=== PATIENT | male | born 1960 | race Caucasian/White ===

== ENCOUNTER 2024-09-22 11:52 | Inpatient (IN) | payer MEDICARE, MEDICAID ==
[~2024-09-22] VITALS: Ht 167.6 cm; Wt 81.8 kg
[2024-09-22 12:38] LABS: EOSINOPHILS # (AUTO) 0.1 X10'3 (0-0.9); MEAN PLATELET VOLUME 9.1 FL (7.4-10.4); NEUTROPHILS # (AUTO) 3.2 X10'3 (1.8-7.7); RED BLOOD COUNT 3.53 X10'6 (4.70-6.10)
[2024-09-22 12:40] LABS: BASOPHILS % (AUTO) 0.6 % (0-1); EOSINOPHILS % (AUTO) 2.7 % (0-6); HEMATOCRIT 34.1 % (42.0-52.0); LYMPHOCYTES # (AUTO) 1.1 X10'3 (1.1-4.8); LYMPHOCYTES % (AUTO) 21.7 % (21-51); MEAN CORPUSCULAR HGB CONC 35.2 g/dL (33.0-36.5); MEAN CORPUSCULAR VOLUME 96.7 FL (78-98); MONOCYTES # (AUTO) 0.5 X10'3 (0-0.9); MONOCYTES % (AUTO) 10.8 % (2-12); NEUTROPHILS % (AUTO) 64.2 % (42-75); PLATELET COUNT 80 X10'3 (140-440); RED CELL DISTRIBUTION WIDTH 15.3 % (11.5-14.5)
[2024-09-22 12:45] LABS: ALANINE AMINOTRANSFERASE 38 U/L (12-78); ALBUMIN 2.6 G/DL (3.4-5.0); ALBUMIN/GLOBULIN RATIO 0.7 (1.1-1.5); ALKALINE PHOSPHATASE 143 IU/L (46-116); AMYLASE 43 U/L (25-115); ANION GAP 5 (8-16); ASPARTATE AMINO TRANSFERASE 39 U/L (10-37); BILIRUBIN,TOTAL 1.9 MG/DL (0.1-1.0); BLOOD UREA NITROGEN 10 MG/DL (7-18); BUN/CREATININE RATIO 11.4 (10.0-20.0); CALCIUM 8.3 MG/DL (8.5-10.1); CHLORIDE 96 MMOL/L (99-107); CREATININE 0.88 MG/DL (0.60-1.10); GLUCOSE 219 MG/DL (70-104); LIPASE 35 U/L (16-77); POTASSIUM 4.9 MMOL/L (3.5-5.1); SODIUM 129 MMOL/L (135-145); TOTAL CARBON DIOXIDE 27.8 MMOL/L (24-32); TOTAL PROTEIN 6.2 G/DL (6.4-8.2); eCRCL 76 ML/MIN; eGFR 87 ML/MIN
[2024-09-22] MEDS: normal saline 1000ml 1,000 ML IV ONE (15:49)
[2024-09-22 17:00] LABS: BILIRUBIN,URINE NEGATIVE (Neg); CLARITY,URINE CLEAR (Clear); COLOR,URINE YELLOW (Yellow); GLUCOSE, URINE >=1000 mg/dl (Neg); KETONES,URINE NEGATIVE (Neg); LEUKOCYTE ESTERASE ,URINE NEGATIVE (Neg); NITRITES, URINE NEGATIVE (Neg); OCCULT BLOOD,URINE TRACE-INTACT (Neg); PROTEIN,URINE NEGATIVE (Neg)
[2024-09-22 17:05] LABS: UA COLLECTION TYPE NON-SPECIFIED
[2024-09-22 17:08] LABS: BACTERIA,URINE FEW /HPF (Neg); MUCUS STRANDS NONE SEEN /LPF (Neg); SQUAMOUS EPITHELIAL CELL,UR NONE SEEN /LPF (FEW); WBC,URINE 0-4 /HPF (0-4)
--- NOTE | 2024-09-22 17:15 | Physician Documentation ---
History of Present Illness ~ Chief Complaint: Dizziness Stated Complaint: LIVER COMPLICATIONS Time Seen by : 13:40 Mode of Arrival: POV, Ambulatory HPI 64 year old male with history of liver disease and recently moved from an area where he was a [place] patient. Now does not have any PCP to prescribe his home meds. He reports increased abdominal swelling but no abdominal pain, as well as some dizziness. When he gets like this, he knows his ammonia level is high. He has not been taking lactulose. He denies fevers, cough, diarrhea, vomiting. He recently underwent a TIPS procedure. Medication Reconciliation Allergies: Coded Allergies: No Known Allergies (Unverified , 09/22/24) Scheduled Furosemide (Lasix), 1 TAB PO DAILY, (Reported) Lactulose (Lactulose), 20 GM PO TID, (Reported) Lactulose (Lactulose), 20 GM PO QID Spironolactone (Spironolactone), 1 TAB PO DAILY, (Reported) Review of Systems All Other Systems at this time: Reviewed and Negative Physical Exam Vital Signs: RN Vital Signs have been reviewed: Yes, Temperature: 97.6, Source: Temporal, Heart Rate: 60, Respiratory Rate: 15, BP: 119/58, Pulse Oximetry: 98, Weight: 81.820 Oxygen Flow Rate: 0 Physical Exam HEENT: PERRL, moist oral mucosa, EOMI +icteric Pulmonary: No respiratory distress GI: +mild distension, soft, nontender, no guarding, no rebound MSK: no deformity Skin: w/d/i, no rash; jaundice Neuro: alert, nonfocal Psych: normal affect Progress Results/Orders Results/Orders Orders - JANNET CHEN MD Page Hospitalist (09/22/24 ) Chest,Single View (09/22/24 18:01) Completed Orders - JANNET CHEN MD Ammonia (09/22/24 13:42) Normal Saline 1000ml (Sodium Chloride 10 (09/22/24 14:35) Chest,Single View (09/22/24 18:01) Vital Signs 09/22/24 09/22/24 09/22/24 11:59 14:03 14:03 Temp 97.6 Pulse 60 60 Resp 18 15 15 B/P (MAP) 124/67 119/58 (78) Pulse Ox 99 98 O2 Flow Rate 0 Laboratory Tests Test 09/22/24 12:23 09/22/24 14:10 09/22/24 16:46 White Blood Count 5.0 Red Blood Count 3.53 L Hemoglobin 12.0 L Hematocrit 34.1 L Mean Corpuscular Volume 96.7 Mean Corpuscular Hemoglobin 34.0 H Mean Corpuscular Hemoglobin Concent 35.2 Red Cell Distribution Width 15.3 H Platelet Count 80 L Mean Platelet Volume 9.1 Neutrophils (%) (Auto) 64.2 Lymphocytes (%) (Auto) 21.7 Monocytes (%) (Auto) 10.8 Eosinophils (%) (Auto) 2.7 Basophils (%) (Auto) 0.6 Neutrophils # (Auto) 3.2 Lymphocytes # (Auto) 1.1 Monocytes # (Auto) 0.5 Eosinophils # (Auto) 0.1 Basophils # (Auto) 0.0 CBC Comment Sodium Level 129 L Potassium Level 4.9 Chloride Level 96 L Carbon Dioxide Level 27.8 Anion Gap 5 L Blood Urea Nitrogen 10 Creatinine 0.88 Estimated GFR/1.73 m2 87 BUN/Creatinine Ratio 11.4 Glucose Level 219 H Hemoglobin A1c 6.4 H Calcium Level 8.3 L Total Bilirubin 1.9 H Aspartate Amino Transf (AST/SGOT) 39 H Alanine Aminotransferase (ALT/SGPT) 38 Alkaline Phosphatase 143 H Total Protein 6.2 L Albumin 2.6 L Globulin 3.6 Albumin/Globulin Ratio 0.7 L Amylase Level 43 Lipase 35 Chemistry Comments Ammonia 57 H Urine Specimen Description Non-specified Urine Color Yellow Urine Clarity Clear Urine pH 7.0 Urine Specific [place] 1.010 Urine Protein Negative Urine Glucose (UA) >=1000 H Urine Ketones Negative Urine Occult Blood Trace-intact Urine Nitrite Negative Urine Bilirubin Negative Urine Urobilinogen 4.0 H Urine Leukocyte Esterase Negative Urine RBC 3-10 Urine WBC 0-4 Urine Squamous Epithelial Cells None seen Urine Bacteria Few Urine Mucus None seen Urine Culture Indicated Not ind Volume Urine Centrifuged 10 ml Urine Comment Medical Decision Making Findings 64 year old male with dizziness and hepatic disease, history of hepatic en cephalopathy. Indeed demonstrated elevated ammonia level, we will provide lactulose and admit patient for further inpatient care and to start him on appropriate medications, get him set up with outpatient follow up. Spoke with Dr. Appiah for transfer of care. Additional Information Ddx = hepatic encephalopthy, sepsis, spontaneous bacterial peritonitis, pneumoni a, dysrhythmia, ACS/NJ Departure Disposition: ADMITTED INPATIENT Admitted to Inpatient Unit: to hospitalist Admission Level of Care: Med/Surg Impression: Primary Impression: Hepatic encephalopathy Additional Impression: Hyperbilirubinemia Condition: Stable Discharge Instructions: Dizziness Referrals: NO PRIMARY CARE PROVIDER (PCP) Prescriptions Lactulose (Lactulose) 20 Gram Packet 20 GM PO QID, #200 PACKET Prov: TRAMAINE REGAN MD 09/24/24 Education Educated: Patient Educated regarding: diagnosis, treatment, prognosis, need for follow up Signature Scribe Signature: . Attestation: . JANNET CHEN MD Sep 22, 2024 17:15
[2024-09-22] MEDS ORDERED: LACT20PA7 PO (17:44)
[2024-09-22] MEDS ORDERED: SPIR100T5 PO (17:44)
[2024-09-22] MEDS ORDERED: FURO-149 PO (17:44)
[2024-09-22] MEDS ORDERED: acetaminophen 325mg tablet PO PRN (17:45)
[2024-09-22] MEDS ORDERED: mag hydrox/Alum hydrox/simeth 30ml oral suspension PO PRN (17:45)
[2024-09-22] MEDS ORDERED: potassium Cl 20 mEq SR tablet PO PRN ×2 (17:45)
[2024-09-22] MEDS ORDERED: magnesium sulf-water 4G/100mL 100 ML IV PRN (17:45)
[2024-09-22] MEDS ORDERED: magnesium hydroxide 30ml (MOM) UD suspension PO PRN (17:45)
[2024-09-22] MEDS ORDERED: magnesium sulf-water 2g/50mL 50 ML IV PRN (17:45)
[2024-09-22] MEDS ORDERED: ondansetron/PF 4mg/2ml inj IV PRN (17:45)
[2024-09-22] MEDS ORDERED: potassium Cl 40MEQ/1/2NS 520ml 520 ML IV PRN (17:45)
[2024-09-22] MEDS ORDERED: glucagon, human recombinant 1mg kit SUBCUT PRN (17:55)
[2024-09-22] MEDS ORDERED: dextrose 50%-water 50ml dispensing syringe IV PRN ×2 (17:55)
[2024-09-22] MEDS ORDERED: DEXTROSE 15 GM of carb/4 tabs (each vial/BOTTLE has 4 tablets) PO PRN ×2 (17:55)
--- NOTE | 2024-09-22 17:58 | HISTORY AND PHYSICAL ---
History & Physical Providers to CC ~ History of Present Illness Reason for Admit\Complaint: Hepatic encephalopathy\dizziness with intermittent confusion History of Present Illness This is a 64-year-old male who recently has moved to [facility]- he is accompanied by his the patient was per the [facility] system however since he has moved here he is no longer in [place]'s territory. 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 The patient was on the transplant list however now he is no longer part of [place] and thus will have to restart. The patient has a elevated ammonia level of 57 states the patient has been more confused and has been more fatigued and weak and has been noncompliant with his lactulose he did take a dose yesterday the patient gets nauseated 1 times a week as well. The patient states he has a borderline diabetic however his fasting blood glucose on chemistries was 219 and there was over a 1000 mg/dL of glucose in his urine analysis. The patient has a abdominal distention and appears to have ascites on exam and the patient's states that at baseline you can see his ribcage for which right now we can not due to his distended abdomen. The patient was scheduled to have an echocardiogram for cardiomegaly. I have ordered a diabetic protocol, lactulose is ordered, daily serum ammonia levels fall precautions and physical therapy is ordered. Allergies: Coded Allergies: No Known Allergies (Unverified , 09/22/24) Home Medications Home Medications Active Reported Lasix (Furosemide) 40 Mg Tablet 1 Tab PO DAILY 30 Days Lactulose 20 Gram Packet 20 Gm PO TID Spironolactone 100 Mg Tablet 1 Tab PO DAILY 30 Days Past Medical History Past Medical History End-stage liver disease with hepatic encephalopathy and ascites, borderline diabetes Past Surgical History Surgical History Comment Tips, paracentesis times 10, umbilical hernia repair with mesh Family History Family History: FH: heart disease FATHER MOTHER Past Social History Social History Comment Lifelong nonsmoker, alcohol use disorder sober x2 years, occasionally smokes marijuana however denies illicit drug use. Full code status ROS ROS Except for positives in the HPI the rest of the 14 point review systems is negative Exam Vitals: Vital Signs Date Time Temp Pulse Resp B/P (MAP) Pulse Ox O2 Delivery O2 Flow Rate FiO2 09/22/24 14:03 60 15 119/58 (78) 98 0 09/22/24 11:59 97.6 General: Gen. No acute distress alert and oriented 4 Lungs clear to ascultation bilaterally, no wheezes rales or rhonchi appreciated Heart normal sinus rhythm no murmurs rubs or clicks noted Abdomen semi firm and distended however nontender bowel sounds are normoactive Lower extremities no clubbing cyanosis, nor edema appreciated bilaterally Diagnostic Data Last Recorded Lab Results: 09/22/24 1223 09/22/24 1223 Advance Care Planning Advanced Care plannin - 30 Minutes Problems: (1) Hepatic encephalopathy Status: Acute Additional Plan # end-stage liver disease with ascites- Abdominal ultrasound is ordered to evaluate for ascites and possible paracentesis The patient has a history of paracentesis times 10- with on average 8 L drained per paracentesis His ascites has improved significantly with tips procedure # metabolic encephalopathy- hepatic encephalopathy With a serum ammonia level of 57 Daily serum ammonia level Lactulose t.i.d. # borderline diabetes Patient is highly likely a diabetic as he has greater than a 1000 mg/dL of glucose in his urinalysis and blood glucoses on chemistries is 219 The hyper and hypoglycemic protocol for diabetes is ordered # hyponatremia daily CMPs ordered # thrombocytopenia Secondary to end-stage liver disease Chemical anticoagulation is contraindicated Monitor daily CMP # cardiomegaly Echocardiogram is ordered to evaluate for heart failure # DVT prophylaxis SCDs I spent a total of 17 minutes on reviewing various resuscitative measures/ ACP with the patient at the time of admission. The patient has decided on full code status Date of Service: Sep 22, 2024 Billing Provider: VIVIANE SHI DO Common Visit Codes: [id number] INP/OBS CARE (HIGH) Secondary Visit Codes: [id number] CARE PLAN 30 MINUTES VIVIANE SHI DO Sep 22, 2024 17:57
[2024-09-22] MEDS: PERFLUTREN PROTEIN-A MICROSPHR (Optison) 0.22 MG/ML 3ML VIAL IV ONE (18:12)
[2024-09-22 18:17] LABS: HEMOGLOBIN A1C 6.4 % (4.5-6.2)
--- NOTE | 2024-09-22 18:23 | RADIOLOGY REPORT ---
CHEST RADIOGRAPH Indication: dizzy Technique: Single frontal view of the chest was obtained COMPARISON: None FINDINGS: Lines and Tubes: None Lungs: Clear Pleura: No effusion. No pneumothorax. Cardiomediastinal contours: Unremarkable Bones: Unremarkable IMPRESSION: No acute disease.
--- NOTE | 2024-09-22 18:53 | RADIOLOGY REPORT ---
_ Procedure: US ULTRASOUND OF ABDOMEN [facility] Study Date and Requested Time: 09/22/2024 06:26 PM History: ascities= eval for possible paracentesis Comparison: None Technique: Multiple high resolution wong-scale images obtained of the abdomen with color Doppler for evaluation of ascites. Findings /impression: No ascites is visualized in all 4 abdominal quadrants. Large amount of bowel gas is noted.
[2024-09-22] MEDS: K and/or MAG REPLACEMENT MC SCH (20:00)
[2024-09-22] MEDS: INSULIN LISPRO 100 UNIT/ML INSULN.PEN MULTI-DOSE SQ SCH (21:00)
[2024-09-22 21:10] VITALS: BP 148/71; PULSE 60; RESP 18; TEMP 97.7; O2SAT 99
[2024-09-22 21:30] VITALS: RESP 18; O2SAT 99
[2024-09-22 22:00] VITALS: BP 118/50; PULSE 66; RESP 14; TEMP 96.3; O2SAT 98
[2024-09-22] MEDS: lactulose 20gm/30ml cup PO SCH (22:09)
[2024-09-22] MEDS: docusate sod 100mg capsule PO SCH (22:10)
[2024-09-23 04:23] LABS: BASOPHILS % (AUTO) 0.7 % (0-1); EOSINOPHILS # (AUTO) 0.3 X10'3 (0-0.9); EOSINOPHILS % (AUTO) 5.1 % (0-6); HEMOGLOBIN 11.3 g/dl (14.0-17.9); LYMPHOCYTES # (AUTO) 1.5 X10'3 (1.1-4.8); MEAN CORPUSCULAR HEMOGLOBIN 34.1 PG (27.0-31.0); MEAN CORPUSCULAR HGB CONC 35.3 g/dL (33.0-36.5); MEAN CORPUSCULAR VOLUME 96.8 FL (78-98); MEAN PLATELET VOLUME 8.6 FL (7.4-10.4); MONOCYTES # (AUTO) 0.8 X10'3 (0-0.9); MONOCYTES % (AUTO) 15.3 % (2-12); NEUTROPHILS # (AUTO) 2.7 X10'3 (1.8-7.7); NEUTROPHILS % (AUTO) 50.9 % (42-75); PLATELET COUNT 81 X10'3 (140-440); RED BLOOD COUNT 3.31 X10'6 (4.70-6.10); RED CELL DISTRIBUTION WIDTH 15.6 % (11.5-14.5); WHITE BLOOD COUNT 5.2 X10'3 (4.5-11.0)
[2024-09-23 04:40] LABS: ALANINE AMINOTRANSFERASE 29 U/L (12-78); ALBUMIN 2.3 G/DL (3.4-5.0); ALBUMIN/GLOBULIN RATIO 0.7 (1.1-1.5); ALKALINE PHOSPHATASE 118 IU/L (46-116); ANION GAP 9 (8-16); ASPARTATE AMINO TRANSFERASE 35 U/L (10-37); BILIRUBIN,TOTAL 2.3 MG/DL (0.1-1.0); BLOOD UREA NITROGEN 7 MG/DL (7-18); BUN/CREATININE RATIO 10.1 (10.0-20.0); CALCIUM 8.7 MG/DL (8.5-10.1); CHLORIDE 103 MMOL/L (99-107); CREATININE 0.69 MG/DL (0.60-1.10); GLUCOSE 108 MG/DL (70-104); MAGNESIUM 1.7 MG/DL (1.5-2.4); POTASSIUM 4.1 MMOL/L (3.5-5.1); SODIUM 139 MMOL/L (135-145); TOTAL CARBON DIOXIDE 26.6 MMOL/L (24-32); TOTAL PROTEIN 5.6 G/DL (6.4-8.2); eCRCL 96 ML/MIN; eGFR > 90 ML/MIN
[2024-09-23 05:05] LABS: PLATELET ESTIMATE DECREASED; TOTAL CELLS COUNTED 100
[2024-09-23 06:00] VITALS: BP 115/75; PULSE 70; RESP 16; TEMP 97.3; O2SAT 97
[2024-09-23 10:00] VITALS: BP 113/60; PULSE 75; RESP 15; TEMP 98; O2SAT 99
[2024-09-23 18:00] VITALS: BP 136/54; PULSE 60; RESP 16; TEMP 98.1; O2SAT 98
--- NOTE | 2024-09-23 18:41 | PROGRESS NOTE ---
Daily Progress Note Providers to CC ~ Antibiotic Timeout Antibiotic Ordered?: No Subjective The patient is serum ammonia level is downtrending- the patient seems oriented however per the patient's he is not at his baseline continues to exhibit s igns of hepatic encephalopathy continue lactulose, abdominal ultrasound was obtained that was negative for any appreciable ascites Objective Vital Signs Date Time Temp Pulse Resp B/P (MAP) Pulse Ox O2 Delivery O2 Flow Rate FiO2 09/23/24 10:00 98.0 75 15 113/60 (77) 99 Room Air 09/23/24 08:00 0.0 Result Diagram: 09/23/2440409/23/24404 Gen. No acute distress alert and oriented 4 Lungs clear to ascultation bilaterally, no wheezes rales or rhonchi appreciated Heart normal sinus rhythm no murmurs rubs or clicks noted Abdomen semi firm and distended however nontender bowel sounds are normoactive Lower extremities no clubbing cyanosis, nor edema appreciated bilaterally Problem\Assessment\Plan Problems/Diagnosis: (1) Hepatic encephalopathy # end-stage liver disease with ascites- Abdominal ultrasound is ordered to evaluate for ascites and possible paracentesis The patient has a history of paracentesis times 10- with on average 8 L drained per paracentesis His ascites has improved significantly with tips procedure 09/23 no ascites was appreciated on ultrasound # metabolic encephalopathy- hepatic encephalopathy With a serum ammonia level of 57 Daily serum ammonia level Lactulose t.i.d. 09/23 ammonia is downtrending however not at cognitive baseline # borderline diabetes Patient is highly likely a diabetic as he has greater than a 1000 mg/dL of glucose in his urinalysis and blood glucoses on chemistries is 219 The hyper and hypoglycemic protocol for diabetes is ordered Hemoglobin A1c 6.4- fingerstick blood sugar readings are under acceptable control # hyponatremia daily CMPs ordered # thrombocytopenia Secondary to end-stage liver disease Chemical anticoagulation is contraindicated Monitor daily CMP # cardiomegaly Echocardiogram demonstrates an LVEF of 75-80% on preliminary report # DVT prophylaxis SCDs Date of Service: Sep 23, 2024 Billing Provider: VIVIANE SHI DO Common Visit Codes: [id number] INP/OBS CARE(HIGH) VIVIANE SHI DO Sep 23, 2024 18:41
--- NOTE | 2024-09-23 18:54 | CARDIOLOGY REPORT ---
APPROVED REPORT EXAM: Comprehensive 2D, Doppler, and color-flow Echocardiogram. Patient Location: 349A Blood Pressure: 118/50 mmHg Heart Rate: 65 bpm Indications Cardiomegaly Dizziness NO [employer]TR [employer] DR[employer] NO Previous ECHO 2D Dimensions LA Diam3.4 cm IVSd 0.8 (0.7-1.1cm) LVDd 5.0 cm PWd 1.0 (0.7-1.1cm) IVSs 1.9 (0.8-1.2cm) LVDs 2.5 (2.5-4.0cm) PWs 1.5 (0.8-1.2cm) LVOT Diameter 1.96 (1.8-2.4cm) LVEF(%) 80.9 (>50%) Ao Asc Diam.3.38 cm IVC 17.31 mmFS (%) 49.7 % SV 94.3 ml CO 5.2 L/min M-Mode Dimensions Left Atrium(MM) 3.71 (2.5-4.0cm) Aortic Root 3.05 (2.2-3.7cm) Aortic Cusp Exc 1.54 (1.5-2.0cm) MV EPSS 0.3 (<0.5cm) Aortic Valve AoV [place]. 157.8 cm/s AoV VTI 29.4 cm AO Peak GR. 10.0 mmHg AO Mean GR. 4 mmHg LVOT VTI 30.12 cm LVOT [place]. 123.1 cm/s MIRELLA(VTI)/BSA 3.09 cm2/m2 MIRELLA (VTI) 3.09 cm2 Mitral Valve MV E Velocity 112.9 cm/s MV Peak Gr. 7 mmHg MV DECEL TIME 324 ms MV A Velocity 65.1 cm/s MV PHT 56 ms E/A Ratio 1.7 MVA (PHT) 3.93 cm2 MV [id number] cm/s TDI Lateral E' P. V12.65 cm/s E/Lateral E' 8.9 Tricuspid Valve TR P. Velocity 260 cm/s RAP ESTIMATE 10 mmHg TR Peak Gr. 27 mmHg RVSP 37 mmHg LEFT VENTRICLE Normal LV size and wall thickness. Overall systolic function is hyperdynamic. LVEF is 75-80%. RIGHT VENTRICLE RV is normal size and function. ATRIA The left atrium size is normal. AORTIC VALVE Trileaflet AV appears mildly sclerotic without stenosis. Trivial insufficiency. MITRAL VALVE Mitral valve leaflets are thickened with moderate annular calcification. Trace regurgitation. TRICUSPID VALVE The tricuspid valve is normal in structure with trace regurgitation. PULMONIC VALVE The pulmonary valve is normal in structure with physiologic insufficiency. GREAT VESSELS The aortic root is normal in size. The ascending aorta is normal in size. The IVC is normal in size a nd collapses >50% with inspiration. PERICARDIUM Normal pericardium. No effusion. Other Information Study Quality: Adequate Conclusion Normal LV size and wall thickness. Overall systolic function is hyperdynamic. LVEF is 75-80%. RV is normal size and function. The left atrium size is normal. Trileaflet AV appears mildly sclerotic without stenosis. Trivial insufficiency. Mitral valve leaflets are thickened with moderate annular calcification. Trace regurgitation. The tricuspid valve is normal in structure with trace regurgitation. Normal pericardium. No effusion.
[2024-09-23 20:00] VITALS: RESP 14; O2SAT 98
[2024-09-23 22:00] VITALS: BP 126/52; PULSE 53; RESP 16; TEMP 98.5; O2SAT 100
[2024-09-24 04:40] LABS: BASOPHILS % (AUTO) 0.5 % (0-1); EOSINOPHILS # (AUTO) 0.2 X10'3 (0-0.9); EOSINOPHILS % (AUTO) 4.2 % (0-6); HEMATOCRIT 31.8 % (42.0-52.0); HEMOGLOBIN 11.3 g/dl (14.0-17.9); LYMPHOCYTES # (AUTO) 1.6 X10'3 (1.1-4.8); LYMPHOCYTES % (AUTO) 28.2 % (21-51); MEAN CORPUSCULAR HEMOGLOBIN 34.3 PG (27.0-31.0); MEAN CORPUSCULAR HGB CONC 35.4 g/dL (33.0-36.5); MEAN CORPUSCULAR VOLUME 96.8 FL (78-98); MEAN PLATELET VOLUME 8.5 FL (7.4-10.4); MONOCYTES # (AUTO) 0.8 X10'3 (0-0.9); MONOCYTES % (AUTO) 14.6 % (2-12); NEUTROPHILS % (AUTO) 52.5 % (42-75); PLATELET COUNT 84 X10'3 (140-440); RED BLOOD COUNT 3.28 X10'6 (4.70-6.10); RED CELL DISTRIBUTION WIDTH 15.4 % (11.5-14.5); WHITE BLOOD COUNT 5.6 X10'3 (4.5-11.0)
[2024-09-24 04:56] LABS: ALANINE AMINOTRANSFERASE 33 U/L (12-78); ALBUMIN 2.3 G/DL (3.4-5.0); ALBUMIN/GLOBULIN RATIO 0.7 (1.1-1.5); ALKALINE PHOSPHATASE 124 IU/L (46-116); ANION GAP 5 (8-16); ASPARTATE AMINO TRANSFERASE 44 U/L (10-37); BILIRUBIN,TOTAL 1.5 MG/DL (0.1-1.0); BLOOD UREA NITROGEN 9 MG/DL (7-18); CALCIUM 8.4 MG/DL (8.5-10.1); CHLORIDE 102 MMOL/L (99-107); CREATININE 0.75 MG/DL (0.60-1.10); GLUCOSE 124 MG/DL (70-104); MAGNESIUM 1.6 MG/DL (1.5-2.4); SODIUM 133 MMOL/L (135-145); TOTAL CARBON DIOXIDE 26.3 MMOL/L (24-32); TOTAL PROTEIN 5.6 G/DL (6.4-8.2); eCRCL 89 ML/MIN; eGFR > 90 ML/MIN
[2024-09-24 06:00] VITALS: BP 101/59; PULSE 49; RESP 16; TEMP 97.9; O2SAT 98
[2024-09-24 07:00] VITALS: RESP 16; O2SAT 96
[2024-09-24] MEDS: lactulose 20gm/30ml cup PO SCH (08:16)
[2024-09-24] MEDS ORDERED: LACT20PA7 PO (12:04)
--- NOTE | 2024-09-24 12:06 | DISCHARGE SUMMARY ---
Discharge Summary Providers to CC ~ Discharge Summary Admission Diagnosis: Ascites/hepatic encephalopathy Hospital Course DATE OF ADMISSION: 09/22/24 DATE OF DISCHARGE: 09/24/24 Discharge Diagnosis\Comment: CIRRHOSIS HEPATITIS-C HISTORY OF METHAMPHETAMINE ABUSE ABDOMINAL PAIN WITH INCREASING GIRTH Operations\Procedures: NONE Consultants: NONE Complications: NONE Condition on DC: Stable New Medications: Lactulose (Lactulose) 20 Gram Packet 20 GM PO QID, #200 PACKET Continued Medications: Furosemide (Lasix) 40 Mg Tablet 1 TAB PO DAILY for 30 Days, #30 TAB 0 Refills Lactulose (Lactulose) 20 Gram Packet 20 GM PO TID Spironolactone (Spironolactone) 100 Mg Tablet 1 TAB PO DAILY for 30 Days, #30 TAB 0 Refills Discharge Summary: History of Present Illness This is a 64-year-old male who recently has moved to [facility]- he is accompanied by his the patient was per the [place] system however since he has moved here he is no longer in [place]'s territory. 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 The patient was on the transplant list however now he is no longer part of [place] and thus will have to restart. The patient has a elevated ammonia level of 57 states the patient has been more confused and has been more fatigued and weak and has been noncompliant with his lactulose he did take a dose yesterday the patient gets nauseated 1 times a week as well. The patient states he has a borderline diabetic however his fasting blood glucose on chemistries was 219 and there was over a 1000 mg/dL of glucose in his urine analysis. The patient has a abdominal distention and appears to have ascites on exam and the patient's states that at baseline you can see his ribcage for which right now we can not due to his distended abdomen. The patient was scheduled to have an echocardiogram for cardiomegaly. I have ordered a diabetic protocol, lactulose is ordered, daily serum ammonia levels fall precautions and physical therapy is ordered. PHYSICAL EXAM PATIENT IS ALERT AND ORIENTED X3 NO ACUTE DISTRESS LYING DOWN COMFORTABLY SPEAKING IN FULL SENTENCES HEENT NORMOCEPHALIC NONTRAUMATIC HEAD PERRLA. EOMI. CVS FIRST AND SECOND HEART SOUNDS ARE REGULAR RATE RHYTHM NO MURMURS GALLOPS OR RUBS RESPIRATORY SYSTEM IS CLEAR TO AUSCULTATE BILATERALLY NO RALES RHONCHI CRACKLES OR WHEEZING ABDOMEN IS SOFT OBESE BOWEL SOUNDS ARE POSITIVE NONTENDER NONDISTENDED EXTREMITIES NO CLUBBING CYANOSIS OR EDEMA HOSPITAL COURSE PATIENT IS A PLEASANT 64-YEAR-OLD GENTLEMAN THAT HAS INCREASED CONFUSION SECONDARY TO HEPATIC ENCEPHALOPATHY SECONDARY TO INCREASED AMMONIA LEVEL OF 57 PATIENT WAS STARTED BACK ON HIS LACTULOSE HE SEEMS TO BE NONCOMPLIANT WITH THE LACTULOSE MAKING HIS SYMPTOMS WORSENED. ALSO HAD ELEVATED BLOOD SUGAR SECONDARY TO HIS DIABETES HE WAS PLACED ON A HYPER/HYPOGLYCEMIA PROTOCOL. PATIENT HAD ABDOMINAL DISTENSION. ULTRASOUND DID NOT SHOW ANY ASCITES SO ANY PARACENTESIS WAS NOT DONE. PATIENT HAD AN ECHOCARDIOGRAM DONE WHICH SHOWS A HYPERDYNAMIC Normal LV size and wall thickness. Overall systolic function is hyperdynamic. LVEF is 75-80%. RV is normal size and function. The left atrium size is normal. Trileaflet AV appears mildly sclerotic without stenosis. Trivial insufficiency. Mitral valve leaflets are thickened with moderate annular calcification. Trace regurgitation. The tricuspid valve is normal in structure with trace regurgitation. Normal pericardium. No effusion. PATIENT WAS STABLE AND DISCHARGED HOME WITH ADVICE TO CONTINUE WITH LACTULOSE SIDE AND INCREASED DOSAGE A PRESCRIPTION WAS GIVEN FOR THIS. *Problems/Diagnosis: (1) Hepatic encephalopathy Status: Acute Total Time Spent on D/C: > 30 Minutes Date of Service: Sep 24, 2024 Billing Provider: TRAMAINE REGAN MD Common Visit Codes: [id number]/OBS DISCH DAY >30min TRAMAINE REGAN MD Sep 24, 2024 12:06
== END 2024-09-24 14:00 | disposition home or self-care (01) | DRG 441 ==
LOC: ER 11:54 → ED HOLD 17:50 → SUR 3N 20:55
PROVIDERS: ADMIT Family Medicine; ATTEND Family Medicine
DX: K76.82 Hepatic encephalopathy (principal); G93.41 Metabolic encephalopathy; E87.1 Hypo-osmolality and hyponatremia; D69.6 Thrombocytopenia, unspecified; K72.10 Chronic hepatic failure without coma; K70.31 Alcoholic cirrhosis of liver with ascites; E80.6 Other disorders of bilirubin metabolism; E11.9 Type 2 diabetes mellitus without complications; F10.10 Alcohol abuse, uncomplicated; Z82.49 Family history of ischemic heart disease and other diseases of the circulatory system; Z91.199 Patient's noncompliance with other medical treatment and regimen due to unspecified reason; Z79.899 Other long term (current) drug therapy
CPT/HCPCS: 36415; 71045; 76705; 80053; 81001; 82140; 82150; 82948; 83036; 83690; 83735; 85007; 85025; 87081; 93306; 96360; 96361; 99285; A6223; A6446; A6449; G0378; J1815; J7030

== ENCOUNTER 2025-02-03 09:23 | Emergency (ER) | payer MEDICARE, OTHER ==
[~2025-02-03] VITALS: Ht 162.6 cm; Wt 74.3 kg
[~2025-02-03 09:23] MED LIST: FURO-149 PO; LACT20PA7 PO; SPIR100T5 PO
--- NOTE | 2025-02-03 09:36 | ELECTROCARDIOGRAPH REPORT ---
[facility] Test Date: 2025-02-03 Test Time: 09:33:50 Pat Name: ASHUTOSH MCDONALD Department: EMERGENCY ROOM Room: Gender: M Florist: SILVIA : 1960 Requested By: RAMYA BUTCHER Order Number: [id number] Reading MD: Measurements Intervals [place] Rate: 58 P: 81 UT: 145 QRS: 80 QRSD: 92 T: 50 QT: 457 QTc: 449 Interpretive Statements Sinus bradycardia Atrial premature complex Low voltage, precordial leads Baseline wander in lead(s) V4,V5 Please click the below link to view image of tracing.
--- NOTE | 2025-02-03 10:06 | RADIOLOGY REPORT ---
CHEST RADIOGRAPH Indication: CP Technique: Single frontal view of the chest was obtained COMPARISON: DI CHEST,SINGLE VIEW on DOS: 09/22/24 FINDINGS: Lines and Tubes: None Lungs: Clear Pleura: No effusion. No pneumothorax. Cardiomediastinal contours: Unremarkable Bones: Unremarkable IMPRESSION: No acute disease.
--- NOTE | 2025-02-03 10:29 | Physician Documentation ---
History of Present Illness Chief Complaint: Chest Wall Pain Stated Complaint: MULTIPLE MED COMPLAINTS Time Seen by MD: 10:23 [facility] 64-year-old male presents to the ED with a complaint of general illness nausea and decreased oral intake. Patient is an end-stage liver disease patient. Not currently complaining of abdominal distention.. Does take lactulose for elevated ammonia levels but did not take his dose this morning. Patient's advocate indicates that he seems more confused than normal. However during the initial interview patient is A&O x4 Day of Onset: Feb 03, 2025 Medication Reconciliation Allergies: Coded Allergies: No Known Allergies (Unverified , 02/03/25) Scheduled Furosemide (Lasix), 1 TAB PO DAILY, (Reported) Lactulose (Lactulose), 20 GM PO TID, (Reported) Lactulose (Lactulose), 20 GM PO QID Spironolactone (Spironolactone), 1 TAB PO DAILY, (Reported) Scheduled PRN ONDANSETRON ODT 4mg tablet (Ondansetron Odt), 1 TAB PO Q6H PRN PRN for nausea/vomiting Past Medical History Patient History: FH: heart disease FATHER, Name: MARIE MCDONALD (HEART ATTACK), MOTHER, Name: OCTAVIA MCDONALD (DOUBLE MASTECTOMY) Review of Systems All Other Systems at this time: Reviewed and Negative ROS As stated above in the HPI, otherwise all systems are reviewed and negative. Physical Exam Vital Signs: Temperature: 98.2, Source: Oral, Heart Rate: 66, Respiratory Rate: 19, BP: 135/65, Pulse Oximetry: 100, Weight: 74.300 Oxygen Flow Rate: 0 Physical Exam General: Alert, no apparent distress. HEENT: PERRL, EOMI, no injection, moist mucous membranes. Neck: Full range of motion. Respiratory: Lungs clear, no respiratory distress. Chest: No accessory muscle use. Cardiovascular: Regular rate and rhythm, no murmurs. Gastrointestinal: Soft, nontender, nondistended. Bowels sounds present. Extremities: Normal range of motion, no deformity. Neurologic: Oriented x4. Psychiatric: Normal mood and affect. Skin: Normal color, warm and dry. No edema, no ecchymosis. Progress Results/Orders Results/Orders Vital Signs 02/03/25 02/03/25 02/03/25 09:29 10:26 10:26 Temp 96.3 98.2 Pulse 57 66 Resp 18 19 B/P (MAP) 126/43 135/65 (88) Pulse Ox 100 96 100 O2 Delivery Room Air* O2 Flow Rate 0 0 FiO2 21 Medical Decision Making Additional information obtaine: N/A Findings This patient's laboratory values were mostly unremarkable and at the baseline of someone who is in his stage liver failure. His ammonia was normal as well. At this time I am going to treat him with antiemetics and discharge him for outpatient therapy and follow up Differential Dx:Considerations: Hernia, Pancreatitis Departure Disposition: HOME / SELF CARE / HOMELESS Impression: Primary Impression: Liver failure Condition: Stable Discharge Instructions: Alcoholic Liver Disease, [id number] Referrals: NO PRIMARY CARE PROVIDER (PCP) Prescriptions ONDANSETRON ODT 4mg tablet (ONDANSETRON ODT) 4 Mg Tab.rapdis 1 TAB PO Q6H PRN PRN for nausea/vomiting for 4 Days, #16 TAB 0 Refills Prov: BASSAM GONZALES NP 02/03/25 Education Educated: Patient Educated regarding: diagnosis Signature Scribe Signature: rf Attestation: Scribed for Bassam Gonzales [employer]ical [employer] Administrative Workers by Bassam Gonzales - DALIA . 02/03/25 18:06 BASSAM GONZALES [facility] [employer] RESOURCES MANAGER Feb 03, 2025 10:29
[2025-02-03 10:41] LABS: MEAN PLATELET VOLUME 9.0 FL (7.4-10.4); RED CELL DISTRIBUTION WIDTH 16.6 % (11.5-14.5)
[2025-02-03 10:52] LABS: APTT 33 SECONDS (22-32); INR 1.4 INR
[2025-02-03 11:01] LABS: CREATININE 1.00 MG/DL (0.60-1.10); PRO BRAIN NATRIURETIC PEPTIDE 134 PG/ML (0-125); TOTAL CARBON DIOXIDE 25.8 MMOL/L (24-32); eCRCL 62 ML/MIN; eGFR 75 ML/MIN
[2025-02-03 11:05] LABS: EOSINOPHILS % (MANUAL) 1.0 % (0-6); LYMPHOCYTES % (MANUAL) 25.0 % (21-51); MONOCYTES % (MANUAL) 13.0 % (2-12); NEUTROPHILS % (MANUAL) 61.0 % (42-75); PLATELET ESTIMATE DECREASED
[2025-02-03 11:06] LABS: ELLIPTOCYTES FEW
[2025-02-03] MEDS ORDERED: ONDA-243 PO (11:48)
[2025-02-03] MEDS: ondansetron 4mg rapidly disintigrating tab PO ONE (11:50)
[2025-02-03 11:58] VITALS: BP 104/55; PULSE 77; RESP 12; TEMP 98.2; O2SAT 99
== END 2025-02-03 12:01 | disposition home or self-care (01) ==
LOC: ER 09:24
DX: K72.90 Hepatic failure, unspecified without coma (principal); R06.02 Shortness of breath
CPT/HCPCS: 36415; 71045; 80048; 82140; 83880; 84484; 85007; 85025; 85610; 85730; 93005; 99285